=== PATIENT | female | born 1970 | race Caucasian/White ===

== ENCOUNTER 2016-04-26 09:50 | Emergency (ER) | payer MEDICARE, OTHER ==
[~2016-04-26] VITALS: Ht 144.8 cm; Wt 59.0 kg
[~2016-04-26 09:50] MED LIST: LAMO25TA PO; NAPR375T3 PO; PROAIR HFA8.5 GM IH
[2016-04-26 10:50] VITALS: BP 121/56
--- NOTE | 2016-04-26 11:40 | RAD ---
4 view radiographs of the right knee 04/26/2016 Clinical history: Right knee pain and swelling after injury. AP, lateral, oblique and sunrise digital radiographs of the right knee were obtained. No fracture or dislocation of the right knee is seen. Very mild degenerative changes are seen involving the medial compartment of the right knee. There is a probable very small right suprapatellar joint effusion. Impression: No fracture or dislocation of the right knee is seen.
[2016-04-26] MEDS ORDERED: HYDR-79 PO (11:56)
--- NOTE | 2016-04-26 11:57 | PHYS DOC ---
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 She was helping a friend build a deck. She was bending on her knee for a number of hours but denies any other injury. She noted swelling in the knee starting last night. She has been ambulatory with a limp today. Her PCP is Dr. Jessica Mata. Review of Systems Review of Systems Constitutional: Denies fever or chills. [] Musculoskeletal: Denies back pain. Reports right knee pain and swelling. Integument: Denies rash or skin lesions. Denies laceration, abrasion, or ecchymosis. Neurologic: Denies headache, focal weakness or sensory changes. [] Allergies Allergies Allergies Coded Allergies Type Severity Reaction Last Updated Verified acetaminophen Allergy Intermediate ITCHING 04/26/16 Yes Physical Exam Physical Exam Constitutional: Well developed, well nourished, no acute distress, non-toxic appearance. [] HENT: Normocephalic, atraumatic, oropharynx moist. [] Eyes: PERRLA, EOMI, conjunctiva normal, no discharge. [] Skin: Warm, dry, no erythema, no rash. There is no laceration, abrasion, ecchymosis, erythema, or warmth of the right knee. Extremities: Right tibial tuberosity tenderness, ROM intact, mild prepatellar edema. 2+ pedal pulses. There is no tenderness of the right hip, thigh, calf, ankle, or foot. Neurologic: Alert and oriented X 3, normal motor function, normal sensory function, no focal deficits noted. [] Psychologic: Affect normal, judgement normal, mood normal. [] Current Patient Data Vital Signs Vital Signs Date Time Temp Pulse Resp B/P Pulse Ox O2 Delivery O2 Flow Rate FiO2 04/26/16 10:50 97.8 62 20 100 Room Air 97.8 EKG EKG [] Radiology/Procedures Radiology/Procedures REASON: pain, swelling RM B PROCEDURE: KNEE RIGHT 4V 4 view radiographs of the right knee 04/26/2016 Clinical history: Right knee pain and swelling after injury. AP, lateral, oblique and sunrise digital radiographs of the right knee were obtained. No fracture or dislocation of the right knee is seen. Very mild degenerative changes are seen involving the medial compartment of the right knee. There is a probable very small right suprapatellar joint effusion. Impression: No fracture or dislocation of the right knee is seen. Course & Med Decision Making Course & Med Decision Making Pertinent Labs and Imaging studies reviewed. (See chart for details) Patient presents with right knee pain and swelling starting yesterday without specific mechanism of injury. On exam, there is prepatellar edema without external signs of injury or evidence of infection. X-ray does not show any acute fractures or dislocations. There is a mild suprapatellar effusion. Patient is discharged home with an Dereck wrap for the knee. She is given prescription for Vicoprofen. She is given contact information for orthopedics for follow-up. Return precautions were discussed. She verbalizes understanding and agrees with plan. Dragon Disclaimer Dragon Disclaimer This electronic medical record was generated, in whole or in part, using a voice recognition dictation system. Departure Departure Impression: Primary Impression: Knee pain, right Additional Impression: Knee effusion, right Disposition: 01 HOME, SELF-CARE Condition: STABLE Referrals: JESSICA MATA MD (PCP) BERTRAND MCFADDEN MD Patient Instructions: Knee Effusion, [id number], Knee Pain, [id number], Knee Wraps (Elastic Bandage) and RICE Additional Instructions: Your x-ray did not show any broken bones or dislocation. There is a small amount of fluid in the knee, which may be due to the pressure on the knee for an extended period of time. Please wear the provided Dereck wrap to help with pain and swelling in the knee. Please take the prescribed pain medication as directed. Do not drive or operate heavy machinery while taking pain medication. Please follow-up with the orthopedic doctor listed below if your pain or swelling continue. Return to emergency department if you have any new or concerning symptoms. Scripts Hydrocodone/Ibuprofen (Hydrocodone-Ibuprofen 7.5-200 )1 Each Tablet1 Tab PO PRN Q6HRS PRN PAIN #20 TAB Ref 0 Prov:PRATIMA WEBER 04/26/16 Problem Qualifiers Primary Impression: Knee pain, right Chronicity: acute Qualified Code: M25.561 - Pain in right knee PRATIMA WEBER Apr 26, 2016 11:57
== END 2016-04-26 12:10 | disposition home or self-care (01) ==
LOC: ER 09:50
DX: M25.561 Pain in right knee (principal); M25.461 Effusion, right knee; J45.909 Unspecified asthma, uncomplicated; F31.9 Bipolar disorder, unspecified; M19.90 Unspecified osteoarthritis, unspecified site; Z90.710 Acquired absence of both cervix and uterus; F17.200 Nicotine dependence, unspecified, uncomplicated; Z88.6 Allergy status to analgesic agent
CPT/HCPCS: 73564; 99284

== ENCOUNTER 2016-05-30 03:18 | Emergency (ER) | payer MEDICARE, OTHER ==
[~2016-05-30] VITALS: Ht 142.2 cm; Wt 61.2 kg
[~2016-05-30 03:18] MED LIST changes: +HYDR-79 PO
[2016-05-30] MEDS ORDERED: TRAM-29 PO (03:55)
--- NOTE | 2016-05-30 03:55 | PHYS DOC ---
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 Patient reports that she was walking up the stairs and her patio and fell backwards and cushioned her fall with her right hand. Patient denies any other symptomatology or discomfort. Patient's physical exam is significant for tenderness to palpation to her left fifth and fourth digits. Patient's pain is greatest around the PIP joints in both fingers. There is no abrasions or open wounds. Patient had an x-ray of her hand which showed no acute fracture. A/P hand sprain/contusion. Patient's ring finger and pinky fingers were jose taped together for support. Patient was sent home with pain medicines to assist her with her discomfort. Patient's clinically and hemodynamically stable for discharge home and further outpatient evaluation. All questions were answered patient was instructed to return to the ER if she has any further problems. Review of Systems Review of Systems Constitutional: Denies fever or chills [] Eyes: Denies change in visual acuity, redness, or eye pain [] HENT: Denies nasal congestion or sore throat [] Respiratory: Denies cough or shortness of breath [] Cardiovascular: No additional information not addressed in HPI [] GI: Denies abdominal pain, nausea, vomiting, bloody stools or diarrhea [] : Denies dysuria or hematuria [] Musculoskeletal: Denies back pain or joint pain [] Integument: Denies rash or skin lesions [] Neurologic: Denies headache, focal weakness or sensory changes [] Endocrine: Denies polyuria or polydipsia [] Current Medications Current Medications Current Medications Medications (Trade) Dose Ordered Sig/Angelica Start Time Stop Time Status Last Admin Dose Admin Tramadol HCl (Ultram) 50 mg 1X ONCE 05/30/16 04:15 05/30/16 04:16 DC 05/30/16 04:27 50 MG Allergies Allergies Allergies Coded Allergies Type Severity Reaction Last Updated Verified acetaminophen Allergy Intermediate ITCHING 04/26/16 Yes Physical Exam Physical Exam Constitutional: Well developed, well nourished, no acute distress, non-toxic appearance. [] HENT: Normocephalic, atraumatic, bilateral external ears normal, oropharynx moist, no oral exudates, nose normal. [] Eyes: PERRLA, EOMI, conjunctiva normal, no discharge. [] Neck: Normal range of motion, no tenderness, supple, no stridor. [] Cardiovascular:Heart rate regular rhythm, no murmur [] Lungs & Thorax: Bilateral breath sounds clear to auscultation [] Abdomen: Bowel sounds normal, soft, no tenderness, no masses, no pulsatile masses. [] Skin: Warm, dry, no erythema, no rash. [] Back: No tenderness, no CVA tenderness. [] Extremities: no cyanosis, no clubbing, ROM intact, no edema. [] Neurologic: Alert and oriented X 3, normal motor function, normal sensory function, no focal deficits noted. [] Psychologic: Affect normal, judgement normal, mood normal. [] Current Patient Data Vital Signs Vital Signs Date Time Temp Pulse Resp B/P Pulse Ox O2 Delivery O2 Flow Rate FiO2 05/30/16 04:34 72 16 146/68 98 Room Air 05/30/16 03:25 98.1 98.1 EKG EKG [] Radiology/Procedures Radiology/Procedures [] Course & Med Decision Making Course & Med Decision Making Pertinent Labs and Imaging studies reviewed. (See chart for details) [] Dragon Disclaimer Dragon Disclaimer This electronic medical record was generated, in whole or in part, using a voice recognition dictation system. Departure Departure Impression: Primary Impression: Hand contusion Additional Impression: Sprain of little finger Disposition: 01 HOME, SELF-CARE Condition: IMPROVED Referrals: ISELA MATA MD (PCP) Patient Instructions: Jose Taping, Finger Sprain Scripts Tramadol Hcl (Ultram)50 Mg Tablet1 Tab PO Q6HRS #14 TAB Prov:SHAYY ESCOBAR MD 05/30/16 Problem Qualifiers SHAYY ESCOBAR MD May 30, 2016 03:55
[2016-05-30] MEDS ORDERED: TRAMADOL 50 MG TABLET. PO ONE (04:15)
[2016-05-30 04:34] VITALS: BP 146/68
--- NOTE | 2016-05-30 07:12 | RAD ---
Left hand, 3 views, 05/30/2016: History: Hand pain, injury No fracture or dislocation is identified. The soft tissues are unremarkable. IMPRESSION: No acute left hand abnormality is detected.
== END 2016-05-30 04:31 | disposition home or self-care (01) ==
LOC: ER 03:18
DX: S63.619A Unspecified sprain of unspecified finger, initial encounter (principal); S00.93XA Contusion of unspecified part of head, initial encounter; J45.909 Unspecified asthma, uncomplicated; F31.9 Bipolar disorder, unspecified; M19.90 Unspecified osteoarthritis, unspecified site; Z88.6 Allergy status to analgesic agent; W10.9XXA Fall (on) (from) unspecified stairs and steps, initial encounter; Y93.89 Activity, other specified; Y99.8 Other external cause status; Y92.89 Other specified places as the place of occurrence of the external cause
CPT/HCPCS: 73130; 99284

== ENCOUNTER 2016-08-16 19:57 | Emergency (ER) | payer MEDICARE, OTHER ==
[~2016-08-16] VITALS: Ht 144.8 cm; Wt 64.4 kg
[~2016-08-16 19:57] MED LIST changes: +TRAM-48 PO
[2016-08-16 20:15] VITALS: BP 100/44
--- NOTE | 2016-08-16 21:20 | PHYS DOC ---
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 Patient states that she has been having pain in the left ankle area. She states that she's had some numbness and tingling into the toes. She states that she's had difficulty with ambulation. She states that she took 400 mg of ibuprofen prior to arrival. Patient states she is able to ambulate but she has increased pain and discomfort Review of Systems Review of Systems Constitutional: Denies fever or chills [] Eyes: Denies change in visual acuity, redness, or eye pain [] HENT: Denies nasal congestion or sore throat [] Respiratory: Denies cough or shortness of breath [] Cardiovascular: No additional information not addressed in HPI [] GI: Denies abdominal pain, nausea, vomiting, bloody stools or diarrhea [] : Denies dysuria or hematuria [] Musculoskeletal: Denies back pain. Complaint of left ankle pain and discomfort Integument: Denies rash or skin lesions [] Neurologic: Denies headache, focal weakness or sensory changes [] Endocrine: Denies polyuria or polydipsia [] Allergies Allergies Allergies Coded Allergies Type Severity Reaction Last Updated Verified acetaminophen Allergy Intermediate ITCHING 04/26/16 Yes Physical Exam Physical Exam Constitutional: Well developed, well nourished, no acute distress, non-toxic appearance. [] HENT: Normocephalic, atraumatic, bilateral external ears normal, oropharynx moist, no oral exudates, nose normal. [] Eyes: PERRLA, EOMI, conjunctiva normal, no discharge. [] Neck: Normal range of motion, no tenderness, supple, no stridor. [] Cardiovascular:Heart rate regular rhythm, no murmur [] Lungs & Thorax: Bilateral breath sounds clear to auscultation [] Skin: Warm, dry, no erythema, no rash. [] Back: No tenderness Extremities: Left lateral ankle tenderness, no cyanosis, no clubbing, ROM intact , no edema. No swelling noted around the finger on the ankle area. Peripheral pulses 2+ cap refill brisk less than 2 seconds. Neurologic: Alert and oriented X 3, normal motor function, normal sensory function, no focal deficits noted. [] Psychologic: Affect normal, judgement normal, mood normal. [] Current Patient Data Vital Signs Vital Signs Date Time Temp Pulse Resp B/P (MAP) Pulse Ox O2 Delivery O2 Flow Rate FiO2 08/16/16 20:15 98.4 68 16 98 Room Air 98.4 EKG EKG [] Radiology/Procedures Radiology/Procedures [] Course & Med Decision Making Course & Med Decision Making Pertinent Labs and Imaging studies reviewed. (See chart for details) Patient's x-rays were negative per Dr. Adam. Patient will be placed in Dereck wrap and an Air-Stirrup splint. Recommended ice packs on 20 minutes off 20 minutes several times a day. Elevation as much as possible. Patient was encouraged to take ibuprofen 800 mg every 8 hours with food. Patient was instructed to wear the Dereck wrap for the next 5-7 days in the Air-Stirrup splint for the next 7-10 days. She is provided with orthopedic name and number to follow up with. Signs symptoms to return back to emergency department been provided. Patient agrees with discharge instructions treatment regimens and follow-up recommendations. [] Dragon Disclaimer Dragon Disclaimer This electronic medical record was generated, in whole or in part, using a voice recognition dictation system. Departure Departure Impression: Primary Impression: Left ankle sprain Disposition: 01 HOME, SELF-CARE Condition: STABLE Referrals: ISELA MATA MD (PCP) ROXANA DURAN MD Patient Instructions: Ankle Sprain, [id number] Additional Instructions: Your x-rays were negative for any bony abnormalities. Wear the Dereck wrap for the next 5-7 days in the Air-Stirrup splint for the next 7 -10 days. Ice packs on 20 minutes off 20 minutes several times a day. Elevation as much as possible. Ibuprofen 800 mg every 8 hours with food stop taking few develop an upset stomach. Follow-up with orthopedic in the next 5-7 days. Return back to emergency prior signs symptoms of become worse. PRANAV ELENA APRN Aug 16, 2016 21:20
--- NOTE | 2016-08-17 07:33 | RAD ---
Three-view study of the left ankle History: Twisted left ankle today with pain and swelling laterally Findings: No acute fracture or dislocation or osteolytic process is seen. The mortise ankle joint is intact. IMPRESSION: No acute osseous abnormality is evident.
== END 2016-08-16 21:27 | disposition home or self-care (01) ==
LOC: ER 19:57
DX: S93.402A Sprain of unspecified ligament of left ankle, initial encounter (principal); F41.9 Anxiety disorder, unspecified; M19.90 Unspecified osteoarthritis, unspecified site; J45.909 Unspecified asthma, uncomplicated; F31.9 Bipolar disorder, unspecified; Z94.1 Heart transplant status; Z88.6 Allergy status to analgesic agent; Z90.710 Acquired absence of both cervix and uterus; X58.XXXA Exposure to other specified factors, initial encounter; Y93.01 Activity, walking, marching and hiking; Y92.89 Other specified places as the place of occurrence of the external cause; Y99.8 Other external cause status
CPT/HCPCS: 29515; 73610; 99284

== ENCOUNTER 2017-04-03 19:25 | Emergency (ER) | payer MEDICARE, OTHER ==
[2017-04-03] MEDS: NAPROXEN 500 MG TABLET PO ×2 (20:55)
[2017-04-03] MEDS: GABAPENTIN 300 MG CAPSULE. PO ×2 (20:55)
[2017-04-03] MEDS: HYDROcodone/APAP 5/325MG 1 TAB TABLET PO ×2 (21:00)
[2017-04-03] MEDS: CYCLOBENZAPRINE 10 MG TABLET. PO ×2 (21:00)
== END 2017-04-03 21:30 | disposition home or self-care (01) ==
LOC: ER 21:30
DX: T33.822A Superficial frostbite of left foot, initial encounter (principal); M19.90 Unspecified osteoarthritis, unspecified site; J45.909 Unspecified asthma, uncomplicated; Z88.6 Allergy status to analgesic agent; X31.XXXA Exposure to excessive natural cold, initial encounter; Y93.89 Activity, other specified; Y92.89 Other specified places as the place of occurrence of the external cause; Y99.8 Other external cause status
CPT/HCPCS: 99284

== ENCOUNTER 2017-06-30 12:12 | Emergency (ER) | payer MEDICARE, OTHER | END 2017-06-30 14:10 | disposition home or self-care (01) | LOC: ER 12:12 | DX: S46.911A Strain of unspecified muscle, fascia and tendon at shoulder and upper arm level, right arm, initial encounter (principal); J45.909 Unspecified asthma, uncomplicated; F31.9 Bipolar disorder, unspecified; Z88.6 Allergy status to analgesic agent; W20.8XXA Other cause of strike by thrown, projected or falling object, initial encounter; Y93.89 Activity, other specified; Y99.8 Other external cause status; Y92.89 Other specified places as the place of occurrence of the external cause | CPT/HCPCS: 73030; 99284 ==

== ENCOUNTER 2017-12-22 14:26 | Emergency (ER) | payer MEDICARE, OTHER ==
[~2017-12-22] VITALS: Ht 147.3 cm; Wt 45.8 kg
[~2017-12-22 14:26] MED LIST changes: +CYCL10TA2 PO; +GABA-586 PO; +HYDR-971 PO; +METH4TAB2 PO; +NAPR-514 PO; +NAPR-695 PO; -NAPR375T3 PO; +NAPR500T8 PO
[2017-12-22 14:42] VITALS: BP 110/51
--- NOTE | 2017-12-22 15:07 | RAD ---
Three-view left knee dated 12/22/2017. No comparison available. Clinical data indication: Left knee pain after fall. FINDINGS: 3 views of left knee show normal bony alignment. No displaced fracture. No joint effusion or loose body. No acute osseous or articular abnormality. IMPRESSION: No acute findings. Electronically signed by: Sotero Bejarano MD (12/22/2017 3:04 PM) [facility] [place]
--- NOTE | 2017-12-22 15:17 | PHYS DOC ---
Past Medical History Past Medical History: Anxiety, Arthritis, Asthma, Bipolar, Cancer, Depression Additional Past Medical Histor: heart transplant Past Surgical History: Hysterectomy, Other Additional Past Surgical Histo: VSD-HEART REPAIRED, ANKLE Alcohol Use: None Drug Use: None Adult General Chief Complaint Chief Complaint: KNEE INJURY [facility] HPI Patient is a 47 year old female who presents with left knee pain after she fell down stairs today. The patient states that she was carrying a toolbox down the stairs when she lost her footing falling. She states that the tool box landed on her knee. She is using a cane to help with ambulation. This happened just prior to arrival. She denies loss of consciousness or any other injury. Review of Systems Review of Systems Constitutional: Denies fever or chills [] Eyes: Denies change in visual acuity, redness, or eye pain [] HENT: Denies nasal congestion or sore throat [] Respiratory: Denies cough or shortness of breath [] Cardiovascular: No additional information not addressed in HPI [] GI: Denies abdominal pain, nausea, vomiting, bloody stools or diarrhea [] : Denies dysuria or hematuria [] Musculoskeletal: See history of present illness Integument: Denies rash or skin lesions [] Neurologic: Denies headache, focal weakness or sensory changes [] Endocrine: Denies polyuria or polydipsia [] All other systems were reviewed and found to be within normal limits, except as documented in this note. Allergies Allergies Allergies Coded Allergies Type Severity Reaction Last Updated Verified acetaminophen Allergy Intermediate ITCHING 04/26/16 Yes Physical Exam Physical Exam Constitutional: Well developed, well nourished, no acute distress, non-toxic appearance. [] HENT: Normocephalic, atraumatic, bilateral external ears normal, oropharynx moist, no oral exudates, nose normal. [] Eyes: PERRLA, EOMI, conjunctiva normal, no discharge. [] Neck: Normal range of motion, no tenderness, supple, no stridor. [] Cardiovascular:Heart rate regular rhythm, no murmur [] Lungs & Thorax: Bilateral breath sounds clear to auscultation [] Abdomen: Bowel sounds normal, soft, no tenderness, no masses, no pulsatile masses. [] Skin: Warm, dry, no erythema, no rash. [] Back: No tenderness, no CVA tenderness. [] Extremities: Left knee tenderness with palpation, small areas of ecchymosis noted, no cyanosis, no clubbing, ROM intact, no edema, pulses and sensation are intact distal to injury. [] Neurologic: Alert and oriented X 3, normal motor function, normal sensory function, no focal deficits noted. [] Psychologic: Affect normal, judgement normal, mood normal. [] Current Patient Data Vital Signs Vital Signs Date Time Temp Pulse Resp B/P (MAP) Pulse Ox O2 Delivery O2 Flow Rate FiO2 12/22/17 14:42 98.4 69 18 110/51 (70) 98 Room Air 98.4 EKG EKG [] Radiology/Procedures Radiology/Procedures []PATIENT: HUBERT ROJAS LACCOUNT: [id number]#: [id number] : 1970 LOCATION: ER AGE: 47 SEX: F EXAM STATUS: PRE ER ORD. PHYSICIAN: DANIEL LARSEN APRN REASON: fell down stairs, just prior to arrival PROCEDURE: KNEE LEFT 3V Three-view left knee dated 12/22/2017. No comparison available. Clinical data indication: Left knee pain after fall. FINDINGS: 3 views of left knee show normal bony alignment. No displaced fracture. No joint effusion or loose body. No acute osseous or articular abnormality. IMPRESSION: No acute findings. Electronically signed by: Sotero Bejarano MD (12/22/2017 3:04 PM) [facility] [place] DICTATED and SIGNED BY: SOTERO BEJARANO MD DATE: 12/22/17 1503 Course & Med Decision Making Course & Med Decision Making Pertinent Labs and Imaging studies reviewed. (See chart for details) [] Dragon Disclaimer Dragon Disclaimer This electronic medical record was generated, in whole or in part, using a voice recognition dictation system. Departure Departure Impression: Primary Impression: Contusion Disposition: 01 HOME, SELF-CARE Condition: STABLE Referrals: ISELA MATA MD (PCP) Patient Instructions: Contusion, RICE - Routine Care for Injuries Additional Instructions: RICE the extremity. You may take ibuprofen or Tylenol for pain. Follow-up with your primary care provider in 3-4 days if not improving or return to the emergency department if worsening. DANIEL LARSEN APRN Dec 22, 2017 15:17
== END 2017-12-22 15:37 | disposition home or self-care (01) ==
LOC: ER 14:26
DX: S80.02XA Contusion of left knee, initial encounter (principal); J45.909 Unspecified asthma, uncomplicated; F31.9 Bipolar disorder, unspecified; Z88.6 Allergy status to analgesic agent; W10.9XXA Fall (on) (from) unspecified stairs and steps, initial encounter; Y93.89 Activity, other specified; Y92.89 Other specified places as the place of occurrence of the external cause; Y99.8 Other external cause status
CPT/HCPCS: 73562; 99284

== ENCOUNTER 2018-01-29 17:27 | Emergency (ER) | payer OTHER ==
[~2018-01-29] VITALS: Ht 147.3 cm; Wt 45.8 kg
[~2018-01-29 17:27] MED LIST changes: -GABA-586 PO; +GABA300C18 PO; +HYDR-3164 PO; -HYDR-971 PO
[2018-01-29 19:02] VITALS: BP 97/49
[2018-01-29] MEDS: HYDROCORTISONE 1% TOPICAL OINTMENT 30GM TUBE. TP ONE (19:30)
[2018-01-29] MEDS ORDERED: HYDR453.4 TP (19:48)
--- NOTE | 2018-01-29 19:48 | PHYS DOC ---
Past Medical History Past Medical History: Anxiety, Arthritis, Asthma, Bipolar, Cancer, Depression Additional Past Medical Histor: VSD Past Surgical History: Hysterectomy, Other Additional Past Surgical Histo: VSD-HEART REPAIRED, ANKLE Alcohol Use: None Drug Use: None Adult General Chief Complaint Chief Complaint: UPPER EXTREMITY SWELLING [facility] HPI Patient is a 47 year old female with history of anxiety, asthma, bipolar, currently being treated for bone cancer in the right hip who presents today with a local reaction to tape on the left upper extremity. Patient had chemotherapy treatment last and they used an IV site on the left upper extremity, she states they had tap over the area once IV was removed, she states she noted a rash once she removed the tape. Denies any fever. Denies any other complaints. Review of Systems Review of Systems Constitutional: Denies fever or chills [] Eyes: Denies change in visual acuity, redness, or eye pain [] HENT: Denies nasal congestion or sore throat [] Respiratory: Denies cough or shortness of breath [] Cardiovascular: No additional information not addressed in HPI [] GI: Denies abdominal pain, nausea, vomiting, bloody stools or diarrhea [] : Denies dysuria or hematuria [] Musculoskeletal: Denies back pain or joint pain [] Integument: Rash to the left upper extremity, local reaction to tape Neurologic: Denies headache, focal weakness or sensory changes [] All other systems were reviewed and found to be within normal limits, except as documented in this note. Current Medications Current Medications Current Medications Medications (Trade) Dose Ordered Sig/Angelica Start Time Stop Time Status Last Admin Dose Admin Hydrocortisone (Cortaid) 1 rudy 1X ONCE 01/29/18 19:30 01/29/18 19:31 DC 01/29/18 19:30 1 RUDY Allergies Allergies Allergies Coded Allergies Type Severity Reaction Last Updated Verified acetaminophen Allergy Intermediate ITCHING 01/29/18 Yes Physical Exam Physical Exam Constitutional: Well developed, well nourished, no acute distress, non-toxic appearance. [] HENT: Normocephalic, atraumatic, bilateral external ears normal, oropharynx moist, no oral exudates, nose normal. [] Eyes: PERRLA, EOMI, conjunctiva normal, no discharge. [] Neck: Normal range of motion, no tenderness, supple, no stridor. [] Cardiovascular:Heart rate regular rhythm, no murmur [] Lungs & Thorax: Bilateral breath sounds clear to auscultation [] Abdomen: Bowel sounds normal, soft, no tenderness, no masses, no pulsatile masses. [] Skin: Warm, dry, left biceps with an area of erythematous rash approximately 3 x 3 cm consistent with local reaction to tape Back: No tenderness, no CVA tenderness. [] Extremities: No tenderness, no cyanosis, no clubbing, ROM intact, no edema. [] Neurologic: Alert and oriented X 3, normal motor function, normal sensory function, no focal deficits noted. [] Psychologic: Affect normal, judgement normal, mood normal. [] Current Patient Data Vital Signs Vital Signs Date Time Temp Pulse Resp B/P (MAP) Pulse Ox O2 Delivery O2 Flow Rate FiO2 01/29/18 18:00 97.8 73 20 108/52 (70) 98 Room Air 97.8 EKG EKG [] Radiology/Procedures Radiology/Procedures [] Course & Med Decision Making Course & Med Decision Making Pertinent Labs and Imaging studies reviewed. (See chart for details) This is a 47-year-old female patient presented to the ED today with local reaction to tape that was used on the left upper extremity after IV was removed. Discharged with instructions to apply hydrocortisone cream to the area. Follow-up with primary care doctor in the course of this week or next week. Dragon Disclaimer Dragon Disclaimer This electronic medical record was generated, in whole or in part, using a voice recognition dictation system. Departure Departure Impression: Primary Impression: Contact dermatitis Disposition: 01 HOME, SELF-CARE Condition: STABLE Referrals: ISELA MATA MD (PCP) Follow-up with your doctor in the course of this week or next week Patient Instructions: Contact Dermatitis, [id number] Additional Instructions: You were evaluated in the emergency room and noted to have a local reaction to tape. Please let us your doctor know that you're allergic to the tape they used. Apply hydrocortisone cream to the area twice a day. Come back to the ED at any point symptoms worsen. Scripts Hydrocortisone (HYDROCORTISONE) 453.6 Gm Oint...g. 1 RUDY TP BID, #30 GM Prov: LEONEL SHAVER TRANSPORTATION OPERATIONS MANAGER 01/29/18 Problem Qualifiers Primary Impression: Contact dermatitis Contact dermatitis type: irritant Contact dermatitis trigger: other trigger Qualified Codes: L24.89 - Irritant contact dermatitis due to other agents LEONEL SHAVER APRN Jan 29, 2018 19:48
== END 2018-01-29 19:57 | disposition home or self-care (01) ==
LOC: ER 17:27
DX: L24.89 Irritant contact dermatitis due to other agents (principal); J45.909 Unspecified asthma, uncomplicated; F31.9 Bipolar disorder, unspecified; Z88.6 Allergy status to analgesic agent
CPT/HCPCS: 99283

== ENCOUNTER 2018-03-25 10:36 | Emergency (ER) | payer OTHER ==
[~2018-03-25] VITALS: Ht 147.3 cm; Wt 63.5 kg
[~2018-03-25 10:36] MED LIST changes: +ALBU2.5V8 IH; -HYDR-79 PO; +HYDR453.4 TP; +HYDROCODONE-IB1 EAC3 PO; -LAMO25TA PO; +LAMO25TA9 PO; -PROAIR HFA8.5 GM IH
[2018-03-25 10:49] VITALS: BP 121/46
[2018-03-25] MEDS ORDERED: HYDROcodone/APAP 5/325MG 1 TAB TABLET PO ONE (11:30)
[2018-03-25] MEDS ORDERED: traMADol 50 MG TABLET PO ONE (11:45)
--- NOTE | 2018-03-25 11:56 | RAD ---
Indication:pain 1st and 2nd digit, no injury, TECHNIQUE: 3 views of left hand COMPARISON:None FINDINGS/ impression: No acute fracture or dislocation. No arthritic changes. No soft tissue abnormality. Electronically signed by: Andrey Lombardo DO (03/25/2018 11:51 AM) [id number]
[2018-03-25] MEDS ORDERED: IBUP-1007 PO (12:01)
--- NOTE | 2018-03-25 12:01 | PHYS DOC ---
Past Medical History Past Medical History: Anxiety, Arthritis, Asthma, Bipolar, Cancer, Depression Additional Past Medical Histor: VSD Past Surgical History: Hysterectomy, Other Additional Past Surgical Histo: VSD-HEART REPAIRED, ANKLE Alcohol Use: None Drug Use: None Adult General Chief Complaint Chief Complaint: HAND PROBLEM [facility] HPI Patient is a 47 year old female who presents with left hand pain that she woke up with this morning. Patient states she that she slept on it wrong. There is no swelling or bruising she denies any injury to the hand. She states it was just very stiff this morning that she when she went to grab things. She can bend all fingers with intact range of motion. Cap refill less than 3 seconds. Radial pulse strong and present. No edema or deformity. Review of Systems Review of Systems Constitutional: Denies fever or chills [] Eyes: Denies change in visual acuity, redness, or eye pain [] HENT: Denies nasal congestion or sore throat [] Respiratory: Denies cough or shortness of breath [] Cardiovascular: No additional information not addressed in HPI [] GI: Denies abdominal pain, nausea, vomiting, bloody stools or diarrhea [] : Denies dysuria or hematuria [] Musculoskeletal: Left anterior hand pain and fingers one through 4 pain and stiffness with movement. Denies back pain or joint pain [] Integument: Denies rash or skin lesions [] Neurologic: Denies headache, focal weakness or sensory changes [] Endocrine: Denies polyuria or polydipsia [] All other systems were reviewed and found to be within normal limits, except as documented in this note. Current Medications Current Medications Current Medications Medications (Trade) Dose Ordered Sig/Angelica Start Time Stop Time Status Last Admin Dose Admin Acetaminophen/ Hydrocodone Bitart (Lortab 5/325) 1 tab 1X ONCE 03/25/18 11:30 03/25/18 11:39 DC Tramadol HCl (Ultram) 50 mg 1X ONCE 03/25/18 11:45 03/25/18 11:46 DC 03/25/18 12:01 50 MG Allergies Allergies Allergies Coded Allergies Type Severity Reaction Last Updated Verified acetaminophen Allergy Intermediate ITCHING 01/29/18 Yes Physical Exam Physical Exam Constitutional: Well developed, well nourished, no acute distress, non-toxic appearance. [] HENT: Normocephalic, atraumatic, bilateral external ears normal, oropharynx moist, no oral exudates, nose normal. [] Eyes: PERRLA, EOMI, conjunctiva normal, no discharge. [] Neck: Normal range of motion, no tenderness, supple, no stridor. [] Cardiovascular:Heart rate regular rhythm, no murmur [] Lungs & Thorax: Bilateral breath sounds clear to auscultation [] Abdomen: Bowel sounds normal, soft, no tenderness, no masses, no pulsatile masses. [] Skin: Warm, dry, no erythema, no rash. [] Back: No tenderness, no CVA tenderness. [] Extremities: No tenderness, no cyanosis, no clubbing, ROM intact, no edema. [] Neurologic: Alert and oriented X 3, normal motor function, normal sensory function, no focal deficits noted. [] Psychologic: Affect normal, judgement normal, mood normal. [] Current Patient Data Vital Signs Vital Signs Date Time Temp Pulse Resp B/P (MAP) Pulse Ox O2 Delivery O2 Flow Rate FiO2 03/25/18 10:49 98.0 67 18 121/46 (71) 99 Room Air 98.0 EKG EKG [] Radiology/Procedures Radiology/Procedures [] Impressions: [facility] [address] [place], [place] [id number] IMAGING REPORT Signed PATIENT: HUBERT ROJAS ACCOUNT: [id number] : 1970 LOCATION: ER AGE: 47 SEX: F EXAM STATUS: REG ER ORD. PHYSICIAN: PRANAV BROWN APRN REASON: PAIN PROCEDURE: HAND LEFT 3V Indication:pain 1st and 2nd digit, no injury, TECHNIQUE: 3 views of left hand COMPARISON:None FINDINGS/ impression: No acute fracture or dislocation. No arthritic changes. No soft tissue abnormality. Electronically signed by: Andrey Lombardo DO (03/25/2018 11:51 AM) [id number] DICTATED and SIGNED BY: ANDREY LOMBARDO DO DATE: 03/25/18 1149 Course & Med Decision Making Course & Med Decision Making Patient is a 47 year old female who presents with left hand pain that she woke up with this morning. Patient states she that she slept on it wrong. There is no swelling or bruising she denies any injury to the hand. She states it was just very stiff this morning that she when she went to grab things. She can bend all fingers with intact range of motion. Cap refill less than 3 seconds. Radial pulse strong and present. No edema or deformity. Alert and oriented. Skin pink warm and dry. Mucous membranes are moist. Vital signs within normal limits. Patient rates her pain a 6 out of 10. Patient has no pain at the wrist with palpation. There is no pain with palpation. Patient states his only pain with movement. X-ray shows no acute findings. Patient is given an Dereck bandage. Patient is given a prescription for ibuprofen and told to follow-up with her primary care if needed. Dragon Disclaimer Dragon Disclaimer This electronic medical record was generated, in whole or in part, using a voice recognition dictation system. Departure Departure Impression: Primary Impression: Hand pain, left Disposition: 01 HOME, SELF-CARE Condition: STABLE Referrals: ISELA MATA MD (PCP) Patient Instructions: Hand Contusion Additional Instructions: Follow-up her primary care. Take medication as prescribed. Scripts Ibuprofen (IBUPROFEN) 600 Mg Tablet 600 MG PO PRN Q6HRS PRN for INFLAMMATION, #20 TAB Prov: PRANAV BROWN APRN 03/25/18 PRANAV BROWN APRN Mar 25, 2018 12:01
== END 2018-03-25 12:11 | disposition home or self-care (01) ==
LOC: ER 10:36
DX: M79.642 Pain in left hand (principal); J45.909 Unspecified asthma, uncomplicated; F31.9 Bipolar disorder, unspecified; Z88.6 Allergy status to analgesic agent
CPT/HCPCS: 51701; 73130; 99283; 99284

== ENCOUNTER 2018-04-25 22:36 | Emergency (ER) | payer OTHER ==
[~2018-04-25] VITALS: Ht 147.3 cm; Wt 54.4 kg
[~2018-04-25 22:36] MED LIST changes: +IBUP-1007 PO
[2018-04-25] MEDS ORDERED: OXYC10TA PO (23:46)
[2018-04-25] MEDS ORDERED: oxyCODONE IR 5 MG TABLET PO ONE (23:55)
--- NOTE | 2018-04-26 00:23 | PHYS DOC ---
Past Medical History Past Medical History: Anxiety, Arthritis, Asthma, Bipolar, Cancer, Depression Additional Past Medical Histor: VSD Past Surgical History: Hysterectomy, Other Additional Past Surgical Histo: VSD-HEART REPAIRED, ANKLE Alcohol Use: None Drug Use: None Adult General Chief Complaint Chief Complaint: LOWER EXTREMITY SWELLING HPI HPI Patient is 48 yo female who presents with complaint of R hip pain and swelling. Patient reports the pain woke her up from sleep and rates it as 8/10. She has not taken any medication for the pain. She also reports knee stiffness but was able to ambulate in ED. She says her right thigh is much more swollen than the left. She found it to be so severe that she presented to ED. Patient denies recent trauma although partner (present with patient) reports he thinks she fell "the other day after getting stuck in the mud". 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 She also reports she has PMH of "bone cancer" and [place] [facility]. She was unable to tell me what type of bone cancer she was diagnosed with. Patient has had open heart surgery and asthma. She is unable to recall all of her medications but reports she takes spiriva, venlafaxine, albuterol/steroid combo inhaler, and "steroid pill". She reports her PCP is Elise Robin. Review of Systems Review of Systems Constitutional: Denies fever or chills HENT: Denies nasal congestion or sore throat [] Respiratory: Denies cough or shortness of breath [] Cardiovascular: Denies chest pain or palpitations. GI: Denies abdominal pain, nausea, vomiting, bloody stools or diarrhea [] : Denies dysuria or hematuria [] Musculoskeletal: Denies back pain. Admits to R sided hip pain present from lateral aspect mid thigh up to greater trochanter. No edema, erythema, ecchymosis, or palpable deformities appreciated. Extremity warm and well perfused. Integument: Denies rash or skin lesions [] Neurologic: Denies headache, focal weakness or sensory changes [] All other systems were reviewed and found to be within normal limits, except as documented in this note. Current Medications Current Medications Current Medications Medications (Trade) Dose Ordered Sig/Angelica Start Time Stop Time Status Last Admin Dose Admin Oxycodone HCl (Roxicodone) 5 mg 1X ONCE 04/25/18 23:55 04/25/18 23:56 DC 04/26/18 00:10 5 MG Allergies Allergies Allergies Coded Allergies Type Severity Reaction Last Updated Verified acetaminophen Allergy Intermediate ITCHING 01/29/18 Yes Physical Exam Physical Exam Constitutional: Well developed, disheveled, malodorous, dirt covering hands and feet. HENT: Normocephalic, atraumatic, Eyes: PERRLA, EOMI Neck: Normal range of motion Cardiovascular:Heart rate regular rhythm, no murmur [] Lungs & Thorax: Bilateral breath sounds clear to auscultation, vertical, well healed midline scar. [] Abdomen: Abdomen soft, nontender. No lesions Skin: Warm, dry, no erythema, no rash. [] Extremities: Patient tender to palpation lateral aspect r hip and thigh. Both LE symmetric, similarly sized. No erythema, edema, ecchymosis present R thigh. No scars or palpable deformities appreciated. Neurologic: Alert and oriented X 3, normal motor function, normal sensory function, no focal deficits noted. [] Psychologic: Affect normal, mood normal [] Current Patient Data Vital Signs Vital Signs Date Time Temp Pulse Resp B/P (MAP) Pulse Ox O2 Delivery O2 Flow Rate FiO2 04/26/18 00:10 16 99 Room Air 04/25/18 22:45 97.6 74 93/54 (67) 97.6 EKG EKG [] Radiology/Procedures Radiology/Procedures [PROCEDURE: VENOUS LOWER EXTREMITY RIGHT Right lower extremity venous duplex dated 04/26/2018: No comparison available. Clinical Indication: Lower extremity swelling and pain. Findings: Murphy scale, color-flow and spectral wave form analysis was performed of the deep venous system of the right lower extremity from the common femoral vein to the proximal calf vessels. There is normal compressibility, phasicity and augmentation of flow throughout. No evidence of filling defect on the color-flow images. Incidental note is made of duplicated mid and distal femoral veins and popliteal vein. IMPRESSION: No evidence of right lower extremity deep venous thrombosis. Electronically signed by: Sotero Bejarano MD (04/26/2018 1:01 AM) [facility] DICTATED and SIGNED BY: SOTERO BEJARANO MD DATE: 04/26/18 0101 PROCEDURE: HIP RIGHT 2V WITH PELVIS Single view pelvis two-view right hip dated 04/25/2018. No comparison available. Clinical indication: Pain after fall a few weeks ago. FINDINGS: AP view of the pelvis and two-view right hip performed. Pelvic ring is intact. No displaced fracture. No destructive changes or periostitis. Mild degenerative change of the pubic symphysis. 2 views of the right hip show normal bony alignment. No displaced fracture. No periostitis or bone destruction. IMPRESSION: No acute radiographic abnormality. Electronically signed by: Sotero Bejarano MD (04/26/2018 3:39 AM) [facility] DICTATED and SIGNED BY: SOTERO BEJARANO MD DATE: 04/26/18 0339 ] Course & Med Decision Making Course & Med Decision Making Patient is 48 yo female who presents with complaint of acute onset R sided thigh pain and swelling. Patient denies trauma although partner thinks he remembers the patient slipping 2 days ago. Patient reports that she was diagnosed with "bone cancer" but is no longer receiving chemotherapy for the cancer because it made her arm burn. On physical exam patient is diffusely tender to palpation R lateral hip and thigh. No erythema, edema, or ecchymosis appreciated. Legs symmetric in size and girth. R hip xray reveal no intraosseous abnormality. RLE US reveal no DVT. Pain treated with oxycodone. Discussed with patient that likely her pain is from a muscle or ligament injury. Discharged patient home with oxycodone with instructions to follow up with PCP. Patient and partner voiced agreement and understanding with plan. Dragon Disclaimer Dragon Disclaimer This electronic medical record was generated, in whole or in part, using a voice recognition dictation system. Departure Departure Impression: Primary Impression: Leg pain Disposition: HOME, SELF-CARE Condition: STABLE Patient Instructions: Hip Injury Scripts Oxycodone Hcl (OXYCODONE HCL IMMED.RELEASE) 10 Mg Tablet 10 MG PO PRN Q6HRS PRN for PAIN, #6 TAB 0 Refills Prov: TASHI RUSSO MD 04/25/18 TASHI RUSSO MD Apr 26, 2018 00:23
[2018-04-26 00:30] VITALS: BP 88/52
--- NOTE | 2018-04-26 01:04 | RAD ---
Right lower extremity venous duplex dated 04/26/2018: No comparison available. Clinical Indication: Lower extremity swelling and pain. Findings: Murphy scale, color-flow and spectral wave form analysis was performed of the deep venous system of the right lower extremity from the common femoral vein to the proximal calf vessels. There is normal compressibility, phasicity and augmentation of flow throughout. No evidence of filling defect on the color-flow images. Incidental note is made of duplicated mid and distal femoral veins and popliteal vein. IMPRESSION: No evidence of right lower extremity deep venous thrombosis. Electronically signed by: Sotero Bejarano MD (04/26/2018 1:01 AM) [id number]
--- NOTE | 2018-04-26 03:42 | RAD ---
Single view pelvis two-view right hip dated 04/25/2018. No comparison available. Clinical indication: Pain after fall a few weeks ago. FINDINGS: AP view of the pelvis and two-view right hip performed. Pelvic ring is intact. No displaced fracture. No destructive changes or periostitis. Mild degenerative change of the pubic symphysis. 2 views of the right hip show normal bony alignment. No displaced fracture. No periostitis or bone destruction. IMPRESSION: No acute radiographic abnormality. Electronically signed by: Sotero Bejarano MD (04/26/2018 3:39 AM) [facility]
== END 2018-04-26 00:45 | disposition home or self-care (01) ==
LOC: ER 22:36
DX: M25.551 Pain in right hip (principal); M79.651 Pain in right thigh; G89.11 Acute pain due to trauma; R22.41 Localized swelling, mass and lump, right lower limb; M25.669 Stiffness of unspecified knee, not elsewhere classified; J45.909 Unspecified asthma, uncomplicated; F31.9 Bipolar disorder, unspecified; Z90.710 Acquired absence of both cervix and uterus; Z88.6 Allergy status to analgesic agent; W18.39XA Other fall on same level, initial encounter; Y93.89 Activity, other specified; Y92.89 Other specified places as the place of occurrence of the external cause; Y99.8 Other external cause status
CPT/HCPCS: 73502; 93971; 99284-25

== ENCOUNTER 2018-05-19 09:31 | Emergency (ER) | payer OTHER ==
[~2018-05-19] VITALS: Ht 147.3 cm; Wt 54.4 kg
[~2018-05-19 09:31] MED LIST changes: +OXYC10TA PO
[2018-05-19 09:55] VITALS: BP 112/56
--- NOTE | 2018-05-19 10:06 | PHYS DOC ---
Past Medical History Past Medical History: Anxiety, Arthritis, Asthma, Bipolar, Cancer, Depression Additional Past Medical Histor: VSD Past Surgical History: Hysterectomy, Other Additional Past Surgical Histo: VSD-HEART REPAIRED, ANKLE Alcohol Use: None Drug Use: None Adult General Chief Complaint Chief Complaint: ELBOW PROBLEM [facility] HPI Patient is a 48 year old female who presents to the emergency room with complaints of left elbow and left shoulder pain after a fall on ice at approximately 1300 yesterday afternoon. She reports limited range of motion of her left shoulder and elbow due to pain. She denies any numbness, tingling, or weakness of the affected extremities. She states that her pain is currently a 7 out of 10 on the pain scale. Movement exacerbates her pain, rest helps to alleviate the pain. Review of Systems Review of Systems Constitutional: Denies fever or chills [] Eyes: Denies changes HENT: Denies nasal congestion or sore throat; reports pain that shoots from left shoulder to left-sided neck [] Respiratory: Denies cough or shortness of breath [] Cardiovascular: No additional information not addressed in HPI [] Musculoskeletal: See history of present illness Integument: Denies rash or skin lesions [] Neurologic: Denies headache, focal weakness or sensory changes [] All other systems were reviewed and found to be within normal limits, except as documented in this note. Current Medications Current Medications Current Medications Medications (Trade) Dose Ordered Sig/Angelica Start Time Stop Time Status Last Admin Dose Admin Cyclobenzaprine HCl (Flexeril) 10 mg 1X ONCE 05/19/18 10:30 05/19/18 10:39 DC 05/19/18 10:39 10 MG Naproxen (Naprosyn) 500 mg 1X STAT 05/19/18 10:28 05/19/18 10:39 DC 05/19/18 10:40 500 MG Allergies Allergies Allergies Coded Allergies Type Severity Reaction Last Updated Verified acetaminophen Allergy Intermediate ITCHING 01/29/18 Yes Physical Exam Physical Exam Constitutional: Well developed, well nourished, no acute distress, non-toxic appearance. [] HENT: Normocephalic, atraumatic, bilateral external ears normal, oropharynx moist, nose normal. [] Eyes: PERRLA, conjunctiva normal, no discharge. [] Neck: Normal range of motion, left sterno clavicular tenderness, supple, no stridor. [] Skin: Warm, dry, no erythema, no rash. [] Extremities: No cyanosis, no clubbing, no edema, no erythema; lateral L elbow TTP with limited ROM due to pain; lateral left shoulder TTP with limited ROM due to pain; LUE pulses 2+ Neurologic: Alert and oriented X 3, normal sensory function, no focal deficits noted. [] Psychologic: Affect normal, judgement normal, mood normal. [] Current Patient Data Vital Signs Vital Signs Date Time Temp Pulse Resp B/P (MAP) Pulse Ox O2 Delivery O2 Flow Rate FiO2 05/19/18 09:55 97.8 70 14 112/56 (74) 100 Room Air 97.8 EKG EKG [] Radiology/Procedures Radiology/Procedures PROCEDURE: SHOULDER 2+V LEFT Left shoulder 3 views: Reason for examination: Left shoulder pain after fall on ice. No fracture or dislocation is seen. The bone density appears be normal. No abnormal periosteal reaction is seen. Joint spaces are maintained. IMPRESSION: No acute abnormality evident at the right shoulder.[] PROCEDURE: ELBOW LEFT 3V Examination: ELBOW LEFT 3V History: LEFT MEDIAL ELBOW PAIN AFTER FALL X1 DAY AGO Comparison/Correlation: None Findings: Total 3 images of the left elbow were obtained. Joint spaces are normal. No acute fracture or bony destruction. Soft tissues are unremarkable. No joint effusion. Impression: Normal three-view left elbow x-ray exam. Course & Med Decision Making Course & Med Decision Making Pertinent Labs and Imaging studies reviewed. (See chart for details) [] Dragon Disclaimer Dragon Disclaimer This electronic medical record was generated, in whole or in part, using a voice recognition dictation system. Departure Departure Impression: Primary Impression: Left shoulder pain Additional Impressions: Left shoulder strain Fall due to ice or snow Left elbow contusion Left elbow pain Disposition: 01 HOME, SELF-CARE Condition: STABLE Referrals: ISELA MATA MD (PCP) Patient Instructions: Elbow Contusion, [id number], Shoulder Sprain Additional Instructions: Fill prescription(s) and use as directed. Recommend application of ice, elevation, and rest of affected extremity. Wear the sling and Dereck wrap that was placed as needed for comfort. Follow up with Dr. Chiang if symptoms persist, return to the ER if your symptoms worsen. Scripts Cyclobenzaprine Hcl (CYCLOBENZAPRINE HCL) 10 Mg Tablet 1 TAB PO TID PRN for PAIN for 10 Days, #30 TAB 0 Refills Prov: CHAPO BRANDON [employer]IOR CIVIL ENGINEER 05/19/18 Naproxen (NAPROXEN) 375 Mg Tablet 1 TAB PO BID for 10 Days, #20 TAB 0 Refills Prov: CHAPO BRANDON SENIOR CIVIL ENGINEER 05/19/18 Problem Qualifiers Primary Impression: Left shoulder pain Chronicity: acute Qualified Codes: M25.512 - Pain in left shoulder Additional Impressions: Left shoulder strain Encounter type: initial encounter Qualified Codes: S46.912A - Strain of unspecified muscle, fascia and tendon at shoulder and upper arm level, left arm , initial encounter Fall due to ice or snow Encounter type: initial encounter Qualified Codes: W00.9XXA - Unspecified fall due to ice and snow, initial encounter Left elbow contusion Encounter type: initial encounter Qualified Codes: S50.02XA - Contusion of left elbow, initial encounter CHAPO BRANDON SENIOR CIVIL ENGINEER May 19, 2018 10:06
[2018-05-19] MEDS ORDERED: NAPROXEN 500 MG TABLET PO STA (10:28)
[2018-05-19] MEDS ORDERED: CYCLOBENZAPRINE 10 MG TABLET. PO ONE (10:30)
--- NOTE | 2018-05-19 10:32 | RAD ---
Examination: ELBOW LEFT 3V History: LEFT MEDIAL ELBOW PAIN AFTER FALL X1 DAY AGO Comparison/Correlation: None Findings: Total 3 images of the left elbow were obtained. Joint spaces are normal. No acute fracture or bony destruction. Soft tissues are unremarkable. No joint effusion. Impression: Normal three-view left elbow x-ray exam. Electronically signed by: Kj Lugo MD (05/19/2018 10:30 AM) [facility]
--- NOTE | 2018-05-19 11:16 | RAD ---
Left shoulder 3 views: Reason for examination: Left shoulder pain after fall on ice. No fracture or dislocation is seen. The bone density appears be normal. No abnormal periosteal reaction is seen. Joint spaces are maintained. IMPRESSION: No acute abnormality evident at the right shoulder. Electronically signed by: Carleen Brunner MD (05/19/2018 11:13 AM) [facility]
[2018-05-19] MEDS ORDERED: CYCL10TA2 PO (11:26)
[2018-05-19] MEDS ORDERED: NAPR-695 PO (11:26)
== END 2018-05-19 11:29 | disposition home or self-care (01) ==
LOC: ER 09:31
DX: S46.912A Strain of unspecified muscle, fascia and tendon at shoulder and upper arm level, left arm, initial encounter (principal); S50.02XA Contusion of left elbow, initial encounter; F31.9 Bipolar disorder, unspecified; J45.909 Unspecified asthma, uncomplicated; Z88.6 Allergy status to analgesic agent; W00.0XXA Fall on same level due to ice and snow, initial encounter; Y93.89 Activity, other specified; Y92.89 Other specified places as the place of occurrence of the external cause; Y99.8 Other external cause status
CPT/HCPCS: 73030; 73080; 99284-25

== ENCOUNTER 2018-07-10 23:34 | Emergency (ER) | payer OTHER ==
[~2018-07-10] VITALS: Ht 152.4 cm; Wt 54.4 kg
[2018-07-10 23:49] VITALS: BP 134/58
[2018-07-11] MEDS ORDERED: predniSONE 20 MG TABLET PO ONE
[2018-07-11] MEDS ORDERED: FAMO20TA5 PO
[2018-07-11] MEDS ORDERED: diphenhydrAMINE HCL 25 MG CAPSULE PO ONE
[2018-07-11] MEDS ORDERED: FAMOTIDINE 20 MG TABLET. PO ONE
[2018-07-11] MEDS ORDERED: DIPH25CA58 PO
[2018-07-11] MEDS ORDERED: PRED-220 PO
--- NOTE | 2018-07-11 | PHYS DOC ---
Past Medical History Past Medical History: Anxiety, Arthritis, Asthma, Bipolar, Cancer, Depression, Hypertension Additional Past Medical Histor: VSD Past Surgical History: Hysterectomy, Other Additional Past Surgical Histo: VSD-HEART REPAIRED, ANKLE Alcohol Use: None Drug Use: None Adult General Chief Complaint Chief Complaint: ITCHING HPI HPI Patient is a 48 year old female who presents to the ED today complaining of poison scarlett rash. Patient states she ran into poison scarlett 2 days ago. She states the rash is all over and she believes it could be in her eyes. Denies any vision loss. Review of Systems Review of Systems Constitutional: Denies fever or chills [] Eyes: Denies change in visual acuity, redness, or eye pain [] HENT: Denies nasal congestion or sore throat [] Respiratory: Denies cough or shortness of breath [] Cardiovascular: No additional information not addressed in HPI [] GI: Denies abdominal pain, nausea, vomiting, bloody stools or diarrhea [] : Denies dysuria or hematuria [] Musculoskeletal: Denies back pain or joint pain [] Integument: Reports poison scarlett rash Neurologic: Denies headache, focal weakness or sensory changes [] All other systems were reviewed and found to be within normal limits, except as documented in this note. Current Medications Current Medications Current Medications Medications (Trade) Dose Ordered Sig/[facility] Start Time Stop Time Status Last Admin Dose Admin Diphenhydramine HCl (Benadryl) 25 mg 1X ONCE 07/11/18 00:00 07/11/18 00:01 Famotidine (Pepcid) 20 mg 1X ONCE 07/11/18 00:00 07/11/18 00:01 Prednisone (Prednisone) 60 mg 1X ONCE 07/11/18 00:00 07/11/18 00:01 Allergies Allergies Allergies Coded Allergies Type Severity Reaction Last Updated Verified acetaminophen Allergy Intermediate ITCHING 01/29/18 Yes Physical Exam Physical Exam Constitutional: Well developed, well nourished, no acute distress, non-toxic appearance. [] HENT: Normocephalic, atraumatic, bilateral external ears normal, oropharynx moist, no oral exudates, nose normal. [] Eyes: PERRLA, EOMI, conjunctiva normal, no discharge. [] Neck: Normal range of motion, no tenderness, supple, no stridor. [] Cardiovascular:Heart rate regular rhythm, no murmur [] Lungs & Thorax: Bilateral breath sounds clear to auscultation [] Abdomen: Bowel sounds normal, soft, no tenderness, no masses, no pulsatile masses. [] Skin: Mild amount of erythematous rash on patient's face, bilateral upper extremities. Patient reports the rashes and lower extremities as well Back: No tenderness, no CVA tenderness. [] Extremities: No tenderness, no cyanosis, no clubbing, ROM intact, no edema. [] Neurologic: Alert and oriented X 3, normal motor function, normal sensory function, no focal deficits noted. [] Psychologic: Affect normal, judgement normal, mood normal. [] EKG EKG [] Radiology/Procedures Radiology/Procedures [] Course & Med Decision Making Course & Med Decision Making Pertinent Labs and Imaging studies reviewed. (See chart for details) This is a 48-year-old female patient presenting to the ED today with a rash from poison scarlett. Will be discharged with tapered dose of prednisone, Pepcid and Benadryl. Follow-up with PCP in 2-4 weeks. Dragon Disclaimer Dragon Disclaimer This electronic medical record was generated, in whole or in part, using a voice recognition dictation system. Departure Departure Impression: Primary Impression: Contact dermatitis due to poison scarlett Disposition: 01 HOME, SELF-CARE Condition: STABLE Referrals: ISELA MATA MD (PCP) follow up in 2 weeks Patient Instructions: Poison Scarlett, [id number] Additional Instructions: You were evaluated in the emergency room for contact dermatitis rash from poison scarlett. Take the prescribed medications as ordered. Follow-up with your doctor in 2 weeks. Scripts Famotidine (FAMOTIDINE) 20 Mg Tablet 20 MG PO DAILY, #14 TAB Prov: LEONEL SHAVER APRN 07/11/18 Diphenhydramine Hcl (BENADRYL) 25 Mg Capsule 1 CAP PO Q6HRS, #30 CAP 1 Refill Prov: LEONEL SHAVER APRN 07/11/18 Prednisone (PREDNISONE ) 10 Mg Tablet 10 MG PO UD, #30 TAB 0 Refills Take 5 tablets by mouth daily for 2 days, then take 4 tablets by mouth daily for 2 days, then take 3 tablets by mouth daily for 2 days, then take 2 tablets by mouth daily for 2 days, then take 1 tablets by mouth daily for 2 days, then stop. Prov: LEONEL SHAVER APRN 07/11/18 LEONEL SHAVER APRN July 11, 2018 00:00
== END 2018-07-11 00:03 | disposition home or self-care (01) ==
LOC: ER 23:34
DX: L23.7 Allergic contact dermatitis due to plants, except food (principal); F41.9 Anxiety disorder, unspecified; M19.90 Unspecified osteoarthritis, unspecified site; F31.9 Bipolar disorder, unspecified; I10 Essential (primary) hypertension; Z90.710 Acquired absence of both cervix and uterus; Z88.6 Allergy status to analgesic agent
CPT/HCPCS: 99284; J7512; Q0163

== ENCOUNTER 2018-08-24 11:29 | Emergency (ER) | payer OTHER ==
[~2018-08-24] VITALS: Ht 165.1 cm; Wt 54.4 kg
[~2018-08-24 11:29] MED LIST changes: +DIPH25CA58 PO; +FAMO20TA5 PO; +PRED-220 PO
[2018-08-24 11:30] VITALS: BP 96/46
--- NOTE | 2018-08-24 11:57 | PHYS DOC ---
Past Medical History Past Medical History: Anxiety, Arthritis, Asthma, Bipolar, Cancer, Depression, Hypertension Additional Past Medical Histor: VSD Past Surgical History: Hysterectomy, Other Additional Past Surgical Histo: VSD-HEART REPAIRED, ANKLE Alcohol Use: None Drug Use: None Adult General Chief Complaint Chief Complaint: SORE THROAT [facility] HPI Patient is a 48 year old female who presents to the emergency Department today with complaints of a productive cough, sore throat, and fever of 99 for the last week. Patient denies any chest pain, shortness of breath, abdominal pain, nausea, vomiting, diarrhea, ear pain, shortness of breath, or wheezing. Patient states she has been coughing up white sputum with her cough. Currently, she rates her discomfort as 8 out of 10 on the pain scale, there are no alleviating factors. Review of Systems Review of Systems Constitutional: Reports fever up to 99. Eyes: Denies change in visual acuity, redness, or eye pain [] HENT: Denies nasal congestion; see history of present illness Respiratory: See history of present illness Cardiovascular: No additional information not addressed in HPI [] GI: Denies abdominal pain, nausea, vomiting, or diarrhea [] : Denies dysuria Musculoskeletal: Denies back pain or joint pain [] Integument: Denies rash or skin lesions [] Neurologic: Denies headache, focal weakness or sensory changes [] All other systems were reviewed and found to be within normal limits, except as documented in this note. Allergies Allergies Allergies Coded Allergies Type Severity Reaction Last Updated Verified acetaminophen Allergy Intermediate ITCHING 01/29/18 Yes Physical Exam Physical Exam Constitutional: Well developed, well nourished, no acute distress, non-toxic appearance. [] HENT: Normocephalic, atraumatic, bilateral external ears normal, bilateral TMs normal, cobblestone appearance of posterior pharynx without erythema, oropharynx moist, no oral exudates, nose normal. [] Eyes: PERRLA, conjunctiva normal, no discharge. [] Neck: Normal range of motion, no tenderness, supple, no stridor. [] Cardiovascular:Heart rate regular rhythm, no murmur [] Lungs & Thorax: Bilateral breath sounds clear to auscultation [] Skin: Warm, dry, no erythema, no rash. [] Extremities: No cyanosis, no clubbing, ROM intact, no edema. [] Neurologic: Alert and oriented X 3, no focal deficits noted. [] Psychologic: Affect normal, judgement normal, mood normal. [] Current Patient Data Vital Signs Vital Signs Date Time Temp Pulse Resp B/P (MAP) Pulse Ox O2 Delivery O2 Flow Rate FiO2 08/24/18 11:30 98.6 63 17 96/46 (63) 98 Room Air 98.6 EKG EKG [] Radiology/Procedures Radiology/Procedures [] Course & Med Decision Making Course & Med Decision Making Pertinent Labs and Imaging studies reviewed. (See chart for details) [] Dragon Disclaimer Dragon Disclaimer This electronic medical record was generated, in whole or in part, using a voice recognition dictation system. Departure Departure Impression: Primary Impression: URI (upper respiratory infection) Additional Impressions: Pharyngitis Cough Disposition: HOME, SELF-CARE Condition: STABLE Referrals: ISELA MATA MD (PCP) Patient Instructions: Upper Respiratory Infection, Adult, [id number] Additional Instructions: Fill prescription(s) and use as directed. Recommend use of a Cool mist humidifier in room at bedtime. Alternate Tylenol or ibuprofen as needed for pain/fever. Increase clear fluids. Avoid airway triggers such as smoke, fragrance, dust, and pollen. May take [id number] cough suppressants as needed. Follow-up with your primary care doctor symptoms persist, return to the ER symptoms worsen. Scripts Benzonatate (TESSALON PERLE) 100 Mg Capsule 1 CAP PO TID PRN for COUGH, #21 CAP 0 Refills Prov: CHAPO BRANDON DYSLEXIA TEACHER 08/24/18 Methylprednisolone (MEDROL) 4 Mg Tab.ds.pk 1 PKG PO UD, #1 PKG 0 Refills Prov: CHAPO BRANDON DYSLEXIA TEACHER 08/24/18 Problem Qualifiers Primary Impression: URI (upper respiratory infection) URI type: unspecified URI Qualified Codes: J06.9 - Acute upper respiratory infection, unspecified Additional Impressions: Pharyngitis Pharyngitis/tonsillitis etiology: unspecified etiology Qualified Codes: J02.9 - Acute pharyngitis, unspecified CHAPO BRANDON DYSLEXIA TEACHER Aug 24, 2018 11:57
[2018-08-24] MEDS ORDERED: METH4TAB2 PO (12:00)
[2018-08-24] MEDS ORDERED: BENZ100C PO (12:00)
== END 2018-08-24 12:15 | disposition home or self-care (01) ==
LOC: ER 11:29
DX: J02.9 Acute pharyngitis, unspecified (principal); F41.9 Anxiety disorder, unspecified; M19.90 Unspecified osteoarthritis, unspecified site; F31.9 Bipolar disorder, unspecified; I10 Essential (primary) hypertension; Z90.710 Acquired absence of both cervix and uterus; Z88.6 Allergy status to analgesic agent
CPT/HCPCS: 99283

== ENCOUNTER 2018-12-11 23:58 | Emergency (ER) | payer OTHER, MEDICAID ==
[~2018-12-11] VITALS: Ht 147.3 cm; Wt 63.5 kg
[~2018-12-11 23:58] MED LIST changes: +BENZ100C PO; +PRED20TA PO
[2018-12-12 00:07] VITALS: BP 112/56
--- NOTE | 2018-12-12 01:01 | RAD ---
Indication:Pain in the second digit. TECHNIQUE: 3 views of left hand COMPARISON: None FINDINGS/ impression: No acute fracture or dislocation. There is mild second digit soft tissue swelling noted. No arthritis. Electronically signed by: Andrey Lombardo DO (12/12/2018 12:58 AM) [id number]
--- NOTE | 2018-12-12 01:01 | PHYS DOC ---
Past Medical History Past Medical History: Arthritis, Asthma, Cancer, PR, UTI Additional Past Medical Histor: BRAIN TUMOR Past Surgical History: Coronary Bypass Surgery Additional Past Surgical Histo: CABG X2, LEFT CARPAL TUNNEL, ACHILLES TENDON REPAIR, TUMOR REMOVAL Alcohol Use: None Drug Use: None Adult General Chief Complaint Chief Complaint: FINGER INJURY HPI HPI Patient is a 48 year old female presents to the due to chief complaint of left index finger tenderness. Patient states that the patient has been present for the last 3 days and is worse today. Patient denies any obvious injury. Patient states that she woke up with this and she has swelling and pain in her PIP of the index finger. Review of Systems Review of Systems Constitutional: Denies fever or chills [] Eyes: Denies change in visual acuity, redness, or eye pain [] HENT: Denies nasal congestion or sore throat [] Respiratory: Denies cough or shortness of breath [] Cardiovascular: No additional information not addressed in HPI [] GI: Denies abdominal pain, nausea, vomiting, bloody stools or diarrhea [] : Denies dysuria or hematuria [] Musculoskeletal: Complains of tenderness to the left index finger Neurologic: Denies headache, focal weakness or sensory changes [] All other systems were reviewed and found to be within normal limits, except as documented in this note. Current Medications Current Medications Current Medications Medications (Trade) Dose Ordered Sig/[facility] Start Time Stop Time Status Last Admin Dose Admin Ibuprofen (Motrin) 600 mg 1X ONCE 12/12/18 01:15 12/12/18 01:07 DC 12/12/18 00:57 600 MG Allergies Allergies Allergies Coded Allergies Type Severity Reaction Last Updated Verified acetaminophen Allergy Intermediate ITCHING 01/29/18 Yes Physical Exam Physical Exam Constitutional: Well developed, well nourished, no acute distress, non-toxic appearance. [] HENT: Normocephalic, atraumatic Lungs & Thorax: No respiratory distress Extremities: Tenderness and mild swelling to the left index finger PIP. Patient has passive range of motion. Neurologic: Alert and oriented X 3 Current Patient Data Vital Signs Vital Signs Date Time Temp Pulse Resp B/P (MAP) Pulse Ox O2 Delivery O2 Flow Rate FiO2 12/12/18 00:07 97.7 64 20 112/56 (74) 100 Room Air 97.7 EKG EKG [] Radiology/Procedures Radiology/Procedures Ordered x-ray of the left hand Impressions: X-ray of the left hand is negative for acute fracture. Course & Med Decision Making Course & Med Decision Making Pertinent Imaging studies reviewed. (See chart for details) X-ray shows no acute fracture. Most likely arthritic changes. Patient is given Motrin 600 mg tablet in the ED Discussed results and plan of care with patient. Patient is instructed to follow up with PCP in one to 2 days. Appropriate discharge instructions given to patient to return to the ED or to seek immediate medical evaluation. Dragon Disclaimer Dragon Disclaimer This electronic medical record was generated, in whole or in part, using a voice recognition dictation system. Departure Departure Impression: Primary Impression: Arthritis Additional Impression: Sprain, finger Disposition: HOME, SELF-CARE Condition: STABLE Referrals: ISELA MATA MD (PCP) Patient Instructions: Arthritis, Nonspecific, Finger Sprain Additional Instructions: Discussed results and plan of care with patient. Patient is instructed to follow up with PCP in one to 2 days. Appropriate discharge instructions given to patient to return to the ED or to seek immediate medical evaluation. Problem Qualifiers JHOANA COMBS DO Dec 12, 2018 01:01
[2018-12-12] MEDS ORDERED: IBUPROFEN 200 MG TABLET. PO ONE (01:15)
== END 2018-12-12 01:07 | disposition home or self-care (01) ==
LOC: ER 23:58
DX: S63.611A Unspecified sprain of left index finger, initial encounter (principal); M19.90 Unspecified osteoarthritis, unspecified site; J45.909 Unspecified asthma, uncomplicated; I25.2 Old myocardial infarction; Z95.1 Presence of aortocoronary bypass graft; Z88.6 Allergy status to analgesic agent; X58.XXXA Exposure to other specified factors, initial encounter; Y93.89 Activity, other specified; Y92.89 Other specified places as the place of occurrence of the external cause; Y99.8 Other external cause status
CPT/HCPCS: 73130; 99284

== ENCOUNTER 2019-02-05 20:50 | Emergency (ER) | payer OTHER, MEDICAID ==
[~2019-02-05] VITALS: Ht 147.3 cm; Wt 54.4 kg
[2019-02-05 21:30] VITALS: BP 112/56
[2019-02-05] MEDS ORDERED: BENZ100C PO (21:56)
[2019-02-05] MEDS ORDERED: AMOX875T PO (21:56)
--- NOTE | 2019-02-05 21:57 | PHYS DOC ---
Past Medical History Past Medical History: Arthritis, Asthma, Cancer, CT, UTI Additional Past Medical Histor: BRAIN TUMOR Past Surgical History: Coronary Bypass Surgery Additional Past Surgical Histo: CABG X2, LEFT CARPAL TUNNEL, ACHILLES TENDON REPAIR, TUMOR REMOVAL Alcohol Use: None Drug Use: None Adult General Chief Complaint Chief Complaint: COUGH HPI HPI Patient is a 48 year old female who presents with cough that started this morning. The patient also states been having congestion, runny nose, left ear pain. The patient denies any fever. Review of Systems Review of Systems Constitutional: Denies fever or chills [] Eyes: Denies change in visual acuity, redness, or eye pain [] HENT: Reports runny nose and congestion. Respiratory: Reports cough Cardiovascular: No additional information not addressed in HPI [] GI: Denies abdominal pain, nausea, vomiting, bloody stools or diarrhea [] : Denies dysuria or hematuria [] Musculoskeletal: Denies back pain or joint pain [] Integument: Denies rash or skin lesions [] Neurologic: Denies headache, focal weakness or sensory changes [] Endocrine: Denies polyuria or polydipsia [] Complete systems were reviewed and found to be within normal limits, except as documented in this note. Allergies Allergies Allergies Coded Allergies Type Severity Reaction Last Updated Verified acetaminophen Allergy Intermediate ITCHING 01/29/18 Yes Physical Exam Physical Exam Constitutional: Well developed, well nourished, no acute distress, non-toxic appearance. [] HENT: Normocephalic, atraumatic, bilateral external ears normal, left tympanic membranes is erythematous and bulging, oropharynx moist, no oral exudates, nose turbinates inflamed. Eyes: PERRLA, EOMI, conjunctiva normal, no discharge. [] Neck: Normal range of motion, no tenderness, supple, no stridor. [] Cardiovascular:Heart rate regular rhythm, no murmur [] Lungs & Thorax: Bilateral breath sounds clear to auscultation [] Abdomen: Bowel sounds normal, soft, no tenderness, no masses, no pulsatile masses. [] Skin: Warm, dry, no erythema, no rash. [] Back: No tenderness, no CVA tenderness. [] Extremities: No tenderness, no cyanosis, no clubbing, ROM intact, no edema. [] Neurologic: Alert and oriented X 3, normal motor function, normal sensory function, no focal deficits noted. [] Psychologic: Affect normal, judgement normal, mood normal. [] Current Patient Data Vital Signs Vital Signs Date Time Temp Pulse Resp B/P (MAP) Pulse Ox O2 Delivery O2 Flow Rate FiO2 02/05/19 21:30 98.5 91 16 112/56 (74) 98 Room Air 98.5 EKG EKG [] Radiology/Procedures Radiology/Procedures [] Course & Med Decision Making Course & Med Decision Making Pertinent Labs and Imaging studies reviewed. (See chart for details) The patient has left Otitis Media likely from virus. Will place on Amoxicillin. Patient has been having cough, runny nose, and congestion. Will give Decadron and recommend Zyrtec. Will prescribe Tessalon Perles. Dragon Disclaimer Dragon Disclaimer This electronic medical record was generated, in whole or in part, using a voice recognition dictation system. Departure Departure Impression: Primary Impression: URI (upper respiratory infection) Additional Impression: Otitis media Disposition: 01 HOME, SELF-CARE Condition: STABLE Referrals: DONALDO MATA MD (PCP) Patient Instructions: Otitis Media, Adult, Upper Respiratory Infection, Adult Additional Instructions: Thank you for visiting [facility]. We appreciate you trusting us with your care. If any additional problems come up don't hesitate to return to visit us. Please follow up with your primary care provider so they can plan additional care if needed and know about the problem that you had. If symptoms worsen come back to the Emergency Department. Any concerning symptoms that start such as chest pain, shortness of air, weakness or numbness on one side of the body, running high fevers or any other concerning symptoms return to the ER. You have been prescribed an antibiotic today to help fight your infection. Please take all of the antibiotic as directed. If after 48 hours the infection is not improving, please return for more care. If the infection worsens, return to ER for additional care. Please fill your medications at any pharmacy and follow the prescription instructions. Please take Zyrtec over the counter per label instructions. Scripts Amoxicillin (AMOXICILLIN) 875 Mg Tablet 1 TAB PO BID, #14 TAB Prov: SARAH MANDEL APRN 02/05/19 Benzonatate (TESSALON PERLE) 100 Mg Capsule 100 MG PO TID PRN for COUGH, #21 CAP Prov: SARAH MANDEL APRN 02/05/19 Problem Qualifiers Additional Impression: Otitis media Otitis media type: suppurative Chronicity: acute Laterality: left Recurrence: not specified as recurrent Spontaneous tympanic membrane rupture: without spontaneous rupture Qualified Codes: H66.002 - Acute suppurative otitis media without spontaneous rupture of ear drum, left ear SARAH MANDEL APRN Feb 05, 2019 21:57
[2019-02-05] MEDS ORDERED: DEXAMETHASONE 4 MG TABLET PO ONE (22:30)
== END 2019-02-05 22:00 | disposition home or self-care (01) ==
LOC: ER 20:50
DX: J06.9 Acute upper respiratory infection, unspecified (principal); H66.002 Acute suppurative otitis media without spontaneous rupture of ear drum, left ear; J45.909 Unspecified asthma, uncomplicated; I25.2 Old myocardial infarction; Z95.1 Presence of aortocoronary bypass graft; Z88.6 Allergy status to analgesic agent
CPT/HCPCS: 99283; J8540